=== PATIENT | female | born 1975 | race American Indian/Alaskan Native ===

== ENCOUNTER 2017-01-24 02:42 | Emergency (ER) | payer SELFPAY ==
--- NOTE | 2017-01-24 07:13 | Emergency Department Report ---
HPI - General Chief Complaint: Urogenital-Female Time Seen by Provider: 01/24/17 07:11 - HPI HPI: This is a 41-year-old Afro-[place] female presents to the emergency department with a one-week history of burning with urination. She says that she thinks she might have a urinary tract infection. She has had one before but it has been many years. She denies any vaginal bleeding, vaginal discharge, nausea, vomiting, back pain or fever. She tried some type of [id number] medication for her symptoms without any relief. She does not have a primary care doctor. No recent travel or sick contacts at home. ED Past Medical Hx - Past Medical History Previous Medical History?: No Additional medical history: Childbirth x 3 - Surgical History Past Surgical History?: Yes Additional Surgical History: x 3 - Social History Smoking Status: Never Smoker Substance Use Type: None - Medications Home Medications: Home Medications Medication Instructions Recorded Confirmed Last Taken Type Cyclobenzaprine [Flexeril 10mg] 10 mg PO Q8H PRN #21 tablet 09/20/14 Unknown Rx traMADol [Ultram 50 MG tab] 50 mg PO Q6HR PRN #20 tablet 09/20/14 Unknown Rx Nitrofurantoin Rock/M-Cryst 100 mg PO Q12HR #14 capsule 01/24/17 Unknown Rx [Macrobid CAP] ED Review of Systems ROS: Stated complaint: PAINFUL URINATION/SIDE PAIN Other details as noted in HPI Comment: All other systems reviewed and negative Constitutional: denies: chills, fever Eyes: denies: eye pain, eye discharge, vision change ENT: denies: ear pain, throat pain Respiratory: denies: cough, shortness of breath, wheezing Cardiovascular: denies: chest pain, palpitations Gastrointestinal: denies: nausea, vomiting Genitourinary: dysuria. denies: discharge Musculoskeletal: denies: back pain, joint swelling, arthralgia Skin: denies: rash, lesions Neurological: denies: headache, weakness, paresthesias Physical Exam - Physical Exam Vital Signs: Vital Signs 01/24/17 01/24/17 02:54 06:57 Temperature 98.5 F Pulse Rate 86 71 Respiratory 20 14 Rate Blood Pressure 102/60 145/108 O2 Sat by Pulse 100 100 Oximetry Physical Exam: GENERAL: The patient is well-developed well-nourished. HEENT: Normocephalic. Atraumatic. Extraocular motions are intact. Patient has moist mucous membranes. NECK: Supple. Trachea is midline. CHEST/LUNGS: Clear to auscultation. There is no respiratory distress noted. HEART/CARDIOVASCULAR: Regular. There is no tachycardia. There is no gallop rub or murmur. ABDOMEN: Abdomen is soft, nontender. Patient has normal bowel sounds. There is no abdominal distention. SKIN: Skin is warm and dry. NEURO: The patient is awake, alert, and oriented. The patient is cooperative. The patient has no focal neurologic deficits. The patient has normal speech. MUSCULOSKELETAL: There is no tenderness or deformity. There is no limitation range of motion. There is no evidence of acute injury. ED Course Vital Signs 01/24/17 01/24/17 02:54 06:57 Temperature 98.5 F Pulse Rate 86 71 Respiratory 20 14 Rate Blood Pressure 102/60 145/108 O2 Sat by Pulse 100 100 Oximetry ED Medical Decision Making - Medical Decision Making 41-year-old female presents with one-week history of dysuria. Urinalysis confirms significant urinary tract infection. No signs of pyelonephritis at this time. Vital signs stable including being afebrile. Given the first dose of Macrobid here and will go on a 1 week course. Given referrals for both primary and clinic primary care physicians. She will return to the ER with any development of fever or intractable vomiting or any acute distress. - Differential Diagnosis UTI, , polynephritis, fibroid Critical Care Time: No Critical care attestation.: If time is entered above; I have spent that time in minutes in the direct care of this critically ill patient, excluding procedure time. ED Disposition Clinical Impression: UTI (urinary tract infection) Qualifiers: Urinary tract infection type: acute cystitis Hematuria presence: without hematuria Qualified Code(s): N30.00 - Acute cystitis without hematuria Hypertension Qualifiers: Hypertension type: essential hypertension Qualified Code(s): I10 - Essential ( primary) hypertension Disposition: - TO HOME OR SELFCARE Is pt being admited?: No Condition: Stable Instructions: Urinary Tract Infection in Women (ED), Hypertension (ED) Additional Instructions: Please follow-up with a primary care physician in the next few days. Take the antibiotics as prescribed. Try to stay away from foods that are high in salt and caffeinated products to help with your blood pressure. Return to the emergency department with any worsening of your symptoms or any acute distress. Prescriptions: Nitrofurantoin Rock/M-Cryst [Macrobid CAP] 100 mg PO Q12HR #14 capsule Referrals: PRIMARY CARE, [Primary Care Provider] - 3-5 Days GABI SOARES MD [Staff Physician] - 3-5 Days [facility] [Outside] - 3-5 Days Time of Disposition: 07:46
[2017-01-24 07:34] LABS: Bacteria,Urine 1+ /HPF (Negative); Bilirubin,Urine NEG (Negative); Blood,Urine MOD (Negative); Ketones,Urine NEG (Negative); Leukocyte Esterase,Urine LG (Negative); Mucus,Urine FEW /HPF; Nitrite,Urine NEG (Negative)
[2017-01-24 07:35] LABS: WBC,Urine > 182.0 /HPF (0.0-6.0)
[2017-01-24] MEDS ORDERED: MACROBID PO ONE (07:44)
[2017-01-24 08:56] VITALS: BP 109/70
== END 2017-01-24 08:34 | disposition home or self-care (01) ==
LOC: ED 02:42
DX: N30.00 Acute cystitis without hematuria (principal); I10 Essential (primary) hypertension
CPT/HCPCS: 81001; 81025; 99283